=== PATIENT | male | born 2000 | race Caucasian/White ===

== ENCOUNTER 2022-12-10 22:51 | Emergency (ER) | payer SELFPAY ==
[2022-12-10 22:58] VITALS: BP 119/72; PULSE 88; RESP 16; TEMP 37.3; O2SAT 98; BMI 26.5
[2022-12-10] MEDS: HYDROCODONE-ACETAMIN 5-325 MG 1 TAB 2 TAB PO (23:27)
[2022-12-10] MEDS: IBUPROFEN 400 MG TABLET 800 MG PO (23:28)
[2022-12-10 23:43] LABS: Appearance Urine Clear (Clear); Bilirubin Urine Negative (Negative); Blood Urine Trace-intact (Negative); Color Urine Yellow (Yellow); Glucose Urine Negative (Negative); Ketones Urine Negative (Negative); Leukocyte Esterase Urine Trace (Negative); Nitrite Urine Negative (Negative); Protein Urine Negative (Negative); Urobilinogen Urine 0.2 (0.2-1.0)
--- NOTE | 2022-12-10 23:46 | ED.MALEGU ---
HPI - Male Genitourinary General Chief complaint: Urogenital Problems, Male Stated complaint: urinary problems Time Seen by Provider: 12/10/22 23:06 History of Present Illness HPI Narrative: 22-year-old young man here with grandmother with whom he lives with complaint of left testicle pain. 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 With that discomfort went home and drank a few beers and went to lay down and pain was just so much more and radiating into his abdomen. Has not had any fever. No dysuria frequency urgency. No pyuria Does admit though that bowel movement that today hurt. Any movement seems to hurt. No fever. Doubts sexually transmitted infection. Though was recently with a new partner. She bled he says and he was unprotected. He did take ibuprofen for discomfort but this was about 12 hours ago. Related Data Home Medications Medication Instructions Recorded Confirmed No Known Home Medications 12/10/22 12/10/22 Allergies Allergy/AdvReac Type Severity Reaction Status Date / Time codeine AdvReac Verified 12/10/22 23:01 Review of Systems Status of ROS: Reports: 6 or more systems reviewed and unremarkable except as noted in History and below PFSH PFS Social History Smoking Status: Never smoker How often do you have a drink containing alcohol: 2-3 times a week AUDIT-C Alcohol total score: 3 Non-prescribed substance use: denies use Exam Narrative: Exam Narrative: Is pleasant. Wearing flat pajama bottoms. Clearly uncomfortable. Breathing easily though. Transitions are clearly painful. Heart is in a regular rhythm with regular rate. No murmur rub or gallop identified. Abdomen is soft and a little tender in the suprapubic area. Genitourinary exam is very tender over a moderately swollen left testicle. Continues tender up into the inguinal canal do not feel any masses. Frankly too tender really to evaluate that well I would say. No lesions on exam. Did do OMAR, this was not particularly tender; no prostatic tenderness. Const: Vital Signs, click to edit/add: Vital Signs - 24 hr 12/10/22 22:58 Temperature 99.1 F Pulse Rate [Left P ulse Oximeter] 88 Respiratory Rate 16 Blood Pressure [Ri ght Upper Arm] 119/72 Pulse Oximetry 98 Oxygen Delivery Me thod Room Air Documenting provider has reviewed patient's vital signs: yes Course Vital Signs Vital signs: Initial Vital Signs Temperature 99.1 F 12/10/22 22:58 Temperature Source Temporal Artery Scan 12/10/22 22:58 Pulse Rate 88 12/10/22 22:58 Respiratory Rate 16 12/10/22 22:58 Blood Pressure 119/72 12/10/22 22:58 Blood Pressure Mean 87 12/10/22 22:58 Blood Pressure Position Sitting 12/10/22 22:58 Pulse Oximetry 98 12/10/22 22:58 Oxygen Delivery Method 12/10/22 22:58 Vital Signs Temperature 99.1 F 12/10/22 22:58 Pulse Rate 88 12/10/22 22:58 Respiratory Rate 16 12/10/22 22:58 Blood Pressure 119/72 12/10/22 22:58 Pulse Oximetry 98 12/10/22 22:58 Oxygen Delivery Method 12/10/22 22:58 Temperature 99.1 F 12/10/22 22:58 Pulse Rate 88 12/10/22 22:58 Respiratory Rate 16 12/10/22 22:58 Blood Pressure 119/72 12/10/22 22:58 Pulse Oximetry 98 12/10/22 22:58 Oxygen Delivery Method 12/10/22 22:58 MDM - Male Genitourinary MDM Narrative Medical decision making narrative: At this point collecting early void urine. Giving ibuprofen and Henagar for pain. Still with moderate pain on re-evaluation. Urinalysis is with trace leukocyte esterase and 2-5 white cells few urine bacteria. I would anticipate urine culture pending. Given Rocephin IM and doxycycline to continue for 10 day course. Lab Data Attestation: I reviewed the patient's lab results. Labs: Lab Results 12/10/22 Range/Units 23:26 Urine Color Yellow (Yellow) Urine Appearance Clear (Clear) Urine pH 7.0 (5.0-8.5) Ur Specific [place] 1.020 (1.000-1.030) Urine Protein Negative (Negative) Urine Glucose (UA) Negative (Negative) Urine Ketones Negative (Negative) Urine Blood Trace-intact A (Negative) Urine Nitrite Negative (Negative) Urine Bilirubin Negative (Negative) Urine Urobilinogen 0.2 (0.2-1.0) Ur Leukocyte Esterase Trace A (Negative) Urine RBC 0-2 (0-2) Urine WBC 2-5 (0-5) Ur Squamous Epith Cells Few (None-Few) Urine Bacteria Few A (None) Discharge Plan Discharge Clinical Impression: Orchitis and epididymitis Patient Disposition: Home w/ Parent or Adult Condition: Stable Instructions: Epididymitis (ED), Testicle Pain (ED), Scrotal Pain (ED) Additional Instructions: I would wear more snug briefs, to elevate. Hydrate. Can take up to 800 mg of ibuprofen or up to 1000 mg of acetaminophen per dose. Alternative to the ibuprofen can be up to 500 mg of naproxen 2 times daily. I would with a little food take ibuprofen or naproxen regularly over the next few days. I had to switch up the Henagar for Percocet given what we have in [facility]. Remember that each tablet of Percocet has 325 mg of acetaminophen in it. Percocet from [facility] along with doxycycline. Do start the doxycycline tonight. Can take a tablet of Percocet now as well. Return for fever, uncontrolled pain, repeated vomiting. Activity Level: No Restrictions Discharge Diet: Regular Prescriptions: No Action No Known Home Medications Stand Alone Forms: My[facility] Info Instructions Discharge Comment: [facility] prescriptions for Doxy and Henagar sent with patient.
[2022-12-10 23:52] LABS: Bacteria Urine Few; RBC Urine 0-2 (0-2); Squamous Epithelial Cell Urine Few (None-Few)
[2022-12-11] MEDS: cefTRIAXone 250 MG VIAL IM (00:39)
[2022-12-11] MEDS: LIDOCAINE 1% 5 ml (pf) 5 ML VIAL 0.9 ML IM (00:39)
== END 2022-12-11 00:39 | disposition home or self-care (01) ==
PROVIDERS: Emergency Provider Family Medicine
DX: N45.3 Epididymo-orchitis (principal)
CPT/HCPCS: 81001; 87086; 96372; 99283; 99284; A9270; J0696